=== PATIENT | female | born 1960 | race Caucasian/White ===

== ENCOUNTER 2020-11-09 06:40 | Day surgery (SDC) | payer SELFPAY ==
[~2020-11-09] VITALS: Ht 162.6 cm; Wt 58.3 kg
[2020-11-09 07:15] VITALS: BP 122/73; PULSE 86; TEMP 98.3
[2020-11-09] MEDS ORDERED: PROBIOTIC FORMU1 CAP PO (07:29)
[2020-11-09] MEDS ORDERED: VITAMIN B12 781 TAB PO (07:29)
[2020-11-09] MEDS ORDERED: CRANBERRY 100 M1 SGL (07:30)
[2020-11-09] MEDS ORDERED: VITAMIN D31000 I1 PO (07:30)
[2020-11-09 08:05] VITALS: BP 106/68; PULSE 76; TEMP 98.1
[2020-11-09 08:20] VITALS: BP 108/71; PULSE 73
[2020-11-09 08:35] VITALS: BP 110/63; PULSE 68
== END 2020-11-09 09:30 | disposition home or self-care (01) ==
LOC: SDCO 06:40
DX: K92.1 Melena (principal); K64.2 Third degree hemorrhoids; K21.00 Gastro-esophageal reflux disease with esophagitis, without bleeding; K29.30 Chronic superficial gastritis without bleeding; K63.4 Enteroptosis; G89.29 Other chronic pain; K21.9 Gastro-esophageal reflux disease without esophagitis; F41.9 Anxiety disorder, unspecified; Z90.710 Acquired absence of both cervix and uterus; Z90.49 Acquired absence of other specified parts of digestive tract; Z20.822 Contact with and (suspected) exposure to COVID-19
CPT/HCPCS: J2704; J7120